=== PATIENT | female | born 1970 | race Caucasian/White ===

== ENCOUNTER 2024-07-21 04:08 | Emergency (ER) | payer OTHER, SELFPAY ==
[2024-07-21 04:14] VITALS: BP 149/90; PULSE 74; RESP 18; TEMP 36.6; O2SAT 98; BMI 26.8
--- NOTE | 2024-07-21 05:06 | ED_ITS ---
HPI - Dental/Oral General Chief complaint: Dental/Oral Stated complaint: tooth ache Time Seen by Provider: 07/21/24 05:06 Source: patient Mode of arrival: ambulatory Limitations: no limitations History of Present Illness ED Provider: HPI Narrative: Patient has dental caries with broken teeth unable to see your dentist comes here for pain in the right lower jaw with swelling Related Data Previous Rx's ?Medication ?Instructions ?Recorded penicillin V potassium 500 mg 500 mg PO QID #40 tabs 07/21/24 tablet tramadol 50 mg tablet 50 mg PO Q6H PRN pain #20 tabs 07/21/24 Allergies Allergy/AdvReac Type Severity Reaction Status Date / Time acetaminophen [From Percocet] Allergy Hives Verified 07/21/24 04:16 oxycodone [From Percocet] Allergy Hives Verified 07/21/24 04:16 Review of Systems 2 Review of Systems: Yes all other systems are reviewed and are negative PMFSH Social History Social History Advance Directives: No Advance Directives Information Provided: Yes Do you have a plan to hurt others: No Plan Physical Exam 2 Vital Signs: Vital Signs: Last Vital Signs Temp 98 F 07/21/24 04:14 Pulse 74 07/21/24 04:14 Resp 18 07/21/24 04:14 BP 149/90 H 07/21/24 04:14 Pulse Ox 98 07/21/24 04:14 O2 Del Method Room Air 07/21/24 04:14 BMI result Body Mass Index 26.8 HEENT: Teeth image: 1. Broken 2nd molar with cavities slight gum swelling no fluctuant swelling Medical Decision Making Medical Decision Making [facility] Narrative: Patient with right lower molar pulpitis with surrounding swelling will give antibiotics advised to follow up with dentist Discharge Plan Discharge Clinical Impression: Dental caries Patient Disposition: Home, Self-Care Instructions: Toothache (ED) Additional Instructions: Take antibiotics and pain medication as prescribed Follow up with dentist Prescriptions: New penicillin V potassium 500 mg tablet 500 mg PO QID Qty: 40 0RF tramadol 50 mg tablet 50 mg PO Q6H PRN (Reason: pain) Qty: 20 0RF Print Language: Vietnamese
[2024-07-21] MEDS: Amoxicillin/Potassium Clav 875 MG TABLET PO (05:27)
[2024-07-21] MEDS: traMADoL HCL 50 MG TABLET PO (05:27)
[2024-07-21 05:30] VITALS: BP 149/90; PULSE 74; RESP 18; TEMP 36.6; O2SAT 98
== END 2024-07-21 05:30 | disposition home or self-care (01) ==
PROVIDERS: Emergency Provider Internal Medicine
DX: K02.9 Dental caries, unspecified (principal); K08.89 Other specified disorders of teeth and supporting structures
CPT/HCPCS: 99283